=== PATIENT | female | born 1960 | race Caucasian/White ===

== ENCOUNTER → 2016-06-24 | Outpatient (CLI) | payer OTHER ==
--- NOTE | 2016-06-24 17:44 | MA ---
Screening Digital Mammogram With iCAD Analysis Clinical Indications: Routine screening. Her mother was diagnosed with breast cancer in her 70s and a grandmother in her 50s. Technique: Standard cephalocaudal and mediolateral oblique projections were obtained. This examinatio n was processed by the iCAD computer aided detection system. Comparison: June 2015, May 2014, March 2013, March 2012, March 2011, August 2008. Breast density: Type B; Scattered fibroglandular densities. Findings: CAD was reviewed. No masses, suspicious calcifications or other signs of malignancy are id entified. There has been no significant change in the appearance of either breast. Impression: Negative mammogram. BI-RADS 1. Recommendation: Routine mammographic screening in one year. [facility] will send a result letter to the patient. Negative mammography should not preclude additional workup of a clinically suspicious finding. The patient's information is entered into a reminder system with a target due date for her next mammo gram.
== END ==
LOC: FIMAGING 15:21
DX: Z12.31 Encounter for screening mammogram for malignant neoplasm of breast (principal); Z80.3 Family history of malignant neoplasm of breast
CPT/HCPCS: G0202

== ENCOUNTER → 2017-06-12 | Outpatient (CLI) | payer OTHER | LOC: FIMAGING 14:57 | PROVIDERS: ATTEND Internal Medicine Rheumatology | DX: Z13.820 Encounter for screening for osteoporosis (principal); M85.80 Other specified disorders of bone density and structure, unspecified site ==

== ENCOUNTER → 2017-09-07 | Outpatient (CLI) | payer OTHER | LOC: FIMAGING 13:55 | PROVIDERS: ATTEND Obstetrics & Gynecology Gynecology | DX: Z12.31 Encounter for screening mammogram for malignant neoplasm of breast (principal); Z80.3 Family history of malignant neoplasm of breast ==

== ENCOUNTER → 2017-09-15 | Outpatient (CLI) | payer OTHER | LOC: FIMAGING 10:42 | PROVIDERS: ATTEND Obstetrics & Gynecology Gynecology | DX: R92.8 Other abnormal and inconclusive findings on diagnostic imaging of breast (principal) ==

== ENCOUNTER → 2018-04-20 | Outpatient (CLI) | payer OTHER | LOC: FIMAGING 12:50 | PROVIDERS: ATTEND Obstetrics & Gynecology Gynecology | DX: R92.8 Other abnormal and inconclusive findings on diagnostic imaging of breast (principal) ==

== ENCOUNTER 2018-08-01 08:12 | Inpatient (IN) | payer OTHER ==
--- NOTE | 2018-08-01 06:23 | PDHPUP ---
History & Physical Update H&P update statement: This history and physical update is based on an assessment of the patient which was completed after admission or registration (within 24 hours), but prior to the surgery/procedure. H&P update: H&P reviewed & patient examined, no change in patient's condition since H&P completed
[~2018-08-01 08:12] MED LIST: TRANEXAMIC ACID 3,000 MG/50 ML BAG IRR ONE
[2018-08-01] MEDS ORDERED: LIDOCAINE 1% 2 ML INJ ID PRN (08:30)
[2018-08-01] MEDS ORDERED: ACETAMINOPHEN 325 MG TAB PO ONE (08:30)
[2018-08-01] MEDS ORDERED: ceFAZolin 2 GM/DEXTROSE 100 ML IV ONE (08:30)
[2018-08-01] MEDS ORDERED: LR 1,000 ML IV ONE (08:30)
[2018-08-01] MEDS ORDERED: FAMOTIDINE 20 MG TAB PO ONE (08:30)
[2018-08-01] MEDS ORDERED: DEXAMETHASONE 4 MG/ML VIAL IVP ONE (08:30)
[2018-08-01] MEDS ORDERED: PROPOFOL/EMULSION 500 MG/50 ML BOTTLE IV ONE (09:43)
[2018-08-01] MEDS ORDERED: TRANEXAMIC ACID 3,000 MG in NS (SYRINGE) 50 ML IRR ONE (10:00)
[2018-08-01] MEDS ORDERED: ROPIVACAINE 0.2% 80 MG, EPINEPHrine 0.2 MG in SYRINGE 0 ML IU ONE (10:00)
[2018-08-01] MEDS ORDERED: MIDAZOLAM 2 MG/2 ML VIAL ONE ×2 (10:14→10:43)
[2018-08-01] MEDS ORDERED: BUPIVACAINE/DEXTROSE 7.5MG/ML 2 ML SPINAL AMP SP ONE (10:14)
--- NOTE | 2018-08-01 10:43 | PDANEPAE ---
ANE Past Medical History - Cardiovascular History Hx Hypertension: Yes Hx Arrhythmias: No Hx Chest Pain: No Hx Coronary Artery / Peripheral Vascular Disease: No Hx CHF / Valvular Disease: Yes Cardiovascular History Comment: heart murmur - Pulmonary History Hx COPD: No Hx Asthma/Reactive Airway Disease: No Hx Recent Upper Respiratory Infection: No Hx Oxygen in Use at Home: No Hx Sleep Apnea: No Sleep Apnea Screening Result - Last Documented: Negative - Neurologic History Hx Cerebrovascular Accident: No Hx Seizures: No Hx Dementia: No Neurologic History Comment: 20yrs ago odd episode possible tia inconclusive - Endocrine History Hx Diabetes: No - Renal History Hx Renal Disorders: No - Liver History Hx Hepatic Disorders: No - Neurological & Psychiatric Hx Hx Neurological and Psychiatric Disorders: Yes Neurological / Psychiatric History Comment: anxiety/depression. Lupus - Cancer History Hx Cancer: No - Congenital Disorder History Hx Congenital Disorders: No - GI History Hx Gastrointestinal Disorders: Yes Gastrointestinal History Comment: chronic diarrhea - Other Health History Other Health History: bruises easily - Chronic Pain History Chronic Pain: No - Surgical History Prior Surgeries: none in last 5 yrs. gum surgery. 15yrs ago ovarian cyst removed ANE Review of Systems Review of Systems: - Exercise capacity METS (RN): 4 METS ANE Patient History - Allergies Allergies/Adverse Reactions: lamotrigine [From Lamictal] Allergy (Verified 07/19/18 09:01) GI Upset naproxen Allergy (Verified 07/19/18 09:01) Mouth Blisters NSAIDS (Non-Steroidal Anti-Inflamma Allergy (Verified 07/19/18 09:01) Mouth Blisters Penicillins Allergy (Verified 07/19/18 09:01) Hives/Throat Closing Sulfa (Sulfonamide Antibiotics) Allergy (Verified 07/19/18 09:01) Hives/Throat Closing - Home Medications Home Medications: Acyclovir [Zovirax 400 mg (RX)] 400 mg PO DAILY 12/01/12 [Last Taken 08/01/18 06 :30] Hydroxychloroquine Sulfate [Plaquenil 200 mg (RX)] 400 mg PO DAILY 12/01/12 [ Last Taken 08/01/18 06:30] Sertraline HCl [Zoloft 100mg (RX)] 100 mg PO DAILY 12/01/12 [Last Taken 06:30] Zolpidem Tartrate [Ambien 10 mg] 10 mg PO HS 12/01/12 [Last Taken 07/31/18 20:00 ] ARIPiprazole [Abilify 5 mg (*)] 5 mg PO DAILY 07/19/18 [Last Taken 08/01/18 06: 30] Cetirizine [ZyrTEC 10 mg (*)] 10 mg PO BID 07/19/18 [Last Taken 08/01/18 06:30] Cyclobenzaprine [Flexeril 10 MG (*)] 5 mg PO TID PRN 07/19/18 [Last Taken 20:00] Ferrous Gluconate 324 mg PO DAILY 07/19/18 [Last Taken 08/01/18 06:30] LORazepam [Ativan (*)] 1 mg PO DAILY PRN 07/19/18 [Last Taken 07/30/18] Ranitidine HCl [Zantac] 150 mg PO BID 07/19/18 [Last Taken 08/01/18 06:30] amLODIPine BESYLATE [Norvasc 5 mg (*)] 5 mg PO BID 07/19/18 [Last Taken 06:30] Nebivolol HCl [Bystolic] 1.25 mg PO DAILY 07/30/18 [Last Taken 08/01/18 06:30] - NPO status NPO Since - Liquids (Date): 08/01/18 NPO Since - Liquids (Time): 07:00 NPO Since - Solids (Date): 07/31/18 NPO Since - Solids (Time): 19:00 - Smoking Hx Smoking Status: Never smoked - Family Anes Hx Family Hx Anesthesia Complications: none ANE Labs/Vital Signs - Vital Signs Blood Pressure: 135/71 Heart Rate: 69 Respiratory Rate: 16 O2 Sat (%): 95 Height: 162.56 cm Weight: 86.183 kg ANE Physical Exam - Airway Neck exam: decreased ROM Mallampati Score: Class 2 Mouth exam: normal dental/mouth exam - Pulmonary Pulmonary: no respiratory distress, no rales or rhonchi, clear to auscultation - Cardiovascular Cardiovascular: regular rate and rhythym, no murmur, rub, or gallop - ASA Status ASA Status: III ANE Anesthesia Plan Anesthesia Plan: spinal
[2018-08-01] MEDS ORDERED: fentaNYL 100 MCG/2 ML INJ IVP PRN (10:52)
[2018-08-01] MEDS ORDERED: ONDANSETRON 4 MG/2 ML VIAL IVP PRN ×3 (10:52→12:12)
[2018-08-01] MEDS ORDERED: ALBUTEROL 3 ML DEYVIAL IH PRN ×2 (10:52→12:12)
[2018-08-01] MEDS ORDERED: LR 500 ML IV PRN ×2 (10:52→12:12)
[2018-08-01] MEDS ORDERED: NALOXONE HCL 0.4 MG/ML INJ IVP PRN ×2 (10:52→12:12)
[2018-08-01] MEDS ORDERED: DEXAMETHASONE 4 MG/ML VIAL IVP PRN ×2 (10:52→12:12)
[2018-08-01] MEDS ORDERED: LORazepam 1 MG TAB PO PRN (10:57)
[2018-08-01] MEDS ORDERED: ePHEDrine SULFATE 25 MG/5 ML SYR ONE (11:07)
[2018-08-01] MEDS ORDERED: LACTULOSE 20 GM/30 ML UDCUP PO PRN (11:15)
[2018-08-01] MEDS ORDERED: BISACODYL 10 MG SUPP PR PRN (11:15)
[2018-08-01] MEDS ORDERED: PROMETHAZINE HCL 25 MG/ML INJ IVP PRN (11:15)
[2018-08-01] MEDS ORDERED: DIPHENOXYLATE/ATROPINE LOMOTIL 1 TAB PO PRN (11:15)
[2018-08-01] MEDS ORDERED: POLYETHYLENE GLYCOL 3350 17 GM PKT PO PRN (11:15)
[2018-08-01] MEDS ORDERED: CYCLOBENZAPRINE 10 MG TAB PO PRN (11:15)
[2018-08-01] MEDS ORDERED: ONDANSETRON DISINTEGRATING 4 MG TAB PO PRN (11:15)
[2018-08-01] MEDS ORDERED: traMADol 50 MG TAB PO PRN (11:15)
[2018-08-01] MEDS ORDERED: diphenhydrAMINE 25 MG CAP PO PRN (11:15)
[2018-08-01] MEDS ORDERED: MAGNESIUM HYDROXIDE 30 ML UDCUP PO PRN (11:15)
[2018-08-01] MEDS ORDERED: PROMETHAZINE HCL 25 MG SUPPR PR PRN (11:15)
[2018-08-01] MEDS ORDERED: METOCLOPRAMIDE 10 MG/2 ML VIAL IVP PRN (11:15)
[2018-08-01] MEDS ORDERED: TEMAZEPAM 15 MG CAP PO PRN (11:15)
--- NOTE | 2018-08-01 11:38 | PDMN ---
Medical Necessity Medical necessity: Pt meets inpt criteria per MD order and [facility] S-560, Hip Arthrolasty, A-2 days, IP only list. 57 y/o w/L hip OA admitted for L ESTEVAN, ant approach, and post-op care.
--- NOTE | 2018-08-01 11:54 | POSTOPPROG ---
Post Op Note Date of Operation: 08/01/18 Surgeon: Gera Araujo Rn Urgent Care: Bernie Araujo PA-C Anesthesiologist: Lavonne Watson Anesthesia: Spinal Pre-op Diagnosis: left hip OA Post-op Diagnosis: same Indication: left hip pain Procedure: LTHA Findings: severe OA of left hip Inf/Abcess present in the surg proc area at time of surgery?: No EBL: 50-100
[2018-08-01] MEDS: fentaNYL 100 MCG/2 ML INJ IVP PRN ×4 (12:00→13:13)
[2018-08-01] MEDS ORDERED: fentaNYL 100 MCG/2 ML INJ ONE ×2 (12:01→12:28)
--- NOTE | 2018-08-01 12:35 | POSTANESTH ---
Post Anesthetic Evaluation Cardiovascular Status: Normal, Stable, Similar to Pre-Op Cond Respiratory Status: Normal, Stable, Similar to Pre-op Cond. Level of Consciousness/Mental Status: Can Participate in Eval Pain Control: Adequate, Prn Tx Ordered Nausea/Vomiting Control: Adequate, Prn Tx Ordered Complications Possibly Related to Anesthesia: None Noted
[2018-08-01] MEDS: LR 1,000 ML IV SCH (14:46)
[2018-08-01] MEDS: oxyCODONE IR 5 MG TAB PO PRN ×2 (14:50→20:06)
[2018-08-01] MEDS: ceFAZolin 2 GM/DEXTROSE 100 ML IV SCH (17:33)
[2018-08-01] MEDS: ACETAMINOPHEN 325 MG TAB PO SCH ×2 (17:33→23:20)
[2018-08-01] MEDS: ASPIRIN 81 MG CHEWABLE TAB PO SCH (20:07)
[2018-08-01] MEDS: amLODIPine BESYLATE 5 MG TAB PO SCH (20:07)
[2018-08-01] MEDS: FAMOTIDINE 20 MG TAB PO SCH (20:09)
[2018-08-01] MEDS: CETIRIZINE 10 MG TAB PO SCH (20:10)
[2018-08-01] MEDS: SENNOSIDES/DOCUSATE SODIUM TAB PO SCH (20:10)
[2018-08-01] MEDS ORDERED: ZOLPIDEM TARTRATE 5 MG TAB PO SCH (21:00)
[2018-08-02] MEDS: LR 1,000 ML IV SCH (00:40)
[2018-08-02] MEDS: oxyCODONE IR 5 MG TAB PO PRN ×2 (00:40→10:11)
[2018-08-02] MEDS: ceFAZolin 2 GM/DEXTROSE 100 ML IV SCH (02:05)
[2018-08-02] MEDS: ACETAMINOPHEN 325 MG TAB PO SCH ×2 (05:17→11:00)
[2018-08-02] MEDS: FAMOTIDINE 20 MG TAB PO SCH (07:52)
[2018-08-02] MEDS: SENNOSIDES/DOCUSATE SODIUM TAB PO SCH (07:52)
[2018-08-02] MEDS: CETIRIZINE 10 MG TAB PO SCH (07:52)
[2018-08-02] MEDS: ASPIRIN 81 MG CHEWABLE TAB PO SCH (07:52)
[2018-08-02] MEDS: amLODIPine BESYLATE 5 MG TAB PO SCH (08:07)
[2018-08-02] MEDS ORDERED: ARIPiprazole 5 MG TAB PO SCH (09:00)
[2018-08-02] MEDS ORDERED: NEBIVOLOL HCL 5 MG TAB PO SCH (09:00)
[2018-08-02] MEDS ORDERED: SERTRALINE HCL 100 MG TAB PO SCH (09:00)
[2018-08-02] MEDS ORDERED: HYDROXYCHLOROQUINE SULFATE 200 MG TAB PO SCH (09:00)
[2018-08-02] MEDS ORDERED: ACYCLOVIR 400 MG TAB PO SCH (09:00)
[2018-08-02] MEDS ORDERED: FERROUS SULFATE 325 MG TAB PO SCH (09:00)
--- NOTE | 2018-08-02 09:16 | SOAPPROG ---
SOAP Progress Note Assessment/Plan: Assessment: Patient is doing well POD 1 s/p L ESTEVAN Pain management: pain is well controlled on oral pain meds. VTE ppx: recommend aspirin 81 mg BID for 4 weeks, cont SHARA and SCDs Anemia: level is expected initially postop. Asymptomatic. Continue to monitor D/c planning: Patient is having some difficulty with mobility per RN. Discharge to home pending release from PT. Pain is well controlled, HTN well controlled. medically stable and able to discharge to home with support of sister postop then a friend. Plan: 08/02/18 09:14 Subjective: Lizeth is doing well today, denies SOB, chest pain and N/V Objective: Vital Signs Temp Pulse Resp BP Pulse Ox 36.4 C 67 20 123/65 H 954 H 08/02/18 04:30 08/02/18 07:58 08/02/18 07:34 08/02/18 08:07 08/02/18 07:34 Laboratory Results 08/02/18 05:32 08/01/18 08/02/18 08/03/18 05:59 05:59 05:59 Intake Total 3859 Output Total 600 Balance 3259 LLE: incision dressing is clean and dry ,NVI, +pf/df ICD10 Worksheet Patient Problems: Problems Problem Status Onset Primary localized osteoarthritis of left hip Acute Diverticulitis Acute
--- NOTE | 2018-08-02 11:23 | ASMTLACE ---
LACE Length of stay for Answers: 2 days current admission Acuity / Level of Answers: Yes Care: Did the patient have an inpatient admission? Comorbidities - select Answers: Other Notes: HTN all that apply # of Emergency department Answers: 0 visits in the last 6 months Social determinants Answers: Mental health diagnosis (anxiety, depression, pers onality disorders, etc.) Score: 9 Date Signed: 08/02/2018 11:23 AM Electronically Signed By:TIFFANY Juarez
[2018-08-02 13:24] VITALS: BP 106/63
--- NOTE | 2018-08-02 15:19 | GDS ---
[f rep st] DISCHARGE SUMMARY ADMISSION DIAGNOSIS: Left hip osteoarthritis. DISCHARGE DIAGNOSES: Left hip osteoarthritis. PROCEDURE: Left total hip arthroplasty. VTE PROPHYLAXIS: Recommend aspirin 81 mg twice daily for 4 weeks. BRIEF DESCRIPTION OF HOSPITAL STAY: Patient was admitted for an elective joint arthroplasty. The pa monica tolerated the procedure well and has passed physical therapy. The patient was given appropriat e antibiotic prophylaxis and venous thromboembolism prophylaxis. The patient's pain was well control led on oral pain medication, patient was holding down food, and had urinated. Decision was made to d ischarge the patient. The patient was given post-operative prescriptions pre-operatively. PLAN: To follow up with Dr. Araujo's office on August 21 at 8:30 a.m. /[id number]/MODL
--- NOTE | 2018-08-02 20:15 | GOP ---
[f rep st] OPERATIVE REPORT DATE OF OPERATION: 08/01/2018 SURGEON: Christin Araujo MD POUNCER: 1. Sallie Araujo PA-C. 2. Stacie Morrissey PA-C. ANESTHESIA: Spinal. PREOPERATIVE DIAGNOSIS: Left hip osteoarthritis. POSTOPERATIVE DIAGNOSIS: Left hip osteoarthritis. PROCEDURE PERFORMED: Left total hip arthroplasty with x-ray. FINDINGS: ESTIMATED BLOOD LOSS: 200 cc. INDICATIONS: The patient has progressively worsening arthritis of the hip which has failed medical m anagement. The patient understands the treatment options including continued non-operative care and has selected surgical intervention. The patient has decided to undergo total hip arthroplasty via th e direct anterior approach, understanding the risks of the procedure including, but not limited to, n eurovascular injury, infection, persistent pain, component wear and loosening, deep venous thrombosis , pulmonary embolism, limb length inequality, hip instability (including dislocation), and intra-oper ative fractures. DESCRIPTION OF PROCEDURE: After proper identification of the patient including verification and yun ing the surgical site, the patient was brought to the operating room and placed in the supine positio n. All bony prominences were well padded. Anesthesia was induced without complication and intraveno us prophylactic antibiotics were administered prior to skin incision. The operative leg was placed in the Trumpf Arch table extension and the well leg in a Yellofin leg ho lder. The patient was prepped and draped in the usual sterile fashion. The C-arm was draped for int ra-operative fluoroscopy to check acetabular position, femoral component position including leg lengt h and femoral offset. Attention was then drawn to surgical exposure of the hip. An incision was made with a #10 Bard Elisa r blade starting 3 cm lateral and 3 cm distal to the anterior superior iliac spine measuring 8-10 cm and coursing distally toward the greater trochanter. The skin and subcutaneous tissues were divided sharply down to the fascia peyton. The fascia peyton was incised in line with the skin incision exposing the underlying tensor fascia peyton muscle. The muscle was bluntly elevated from the fascia and the f irst extracapsular Cobra retractor was placed laterally at the junction of the superior femoral neck and greater trochanter. The lateral femoral circumflex vessels were identified, cauterized, and divi ded with the Aquamantys bipolar cautery. The deep investing fascia of the TFL was divided to allow p carolee mobilization of the muscle preventing damage during the retraction. The reflected head of the rectus femoris muscle was elevated off the anterior hip capsule and a medial Cobra retractor was plac ed just proximal to the lesser trochanter. The anterior capsulotomy was made sharply from the superolateral acetabulum to the saddle junction of the superior femoral neck and greater trochanter, then coursing inferomedial towards the lesser troc hanter. The retractors were then placed in the intracapsular position for femoral neck osteotomy. C orresponding to pre-operative templating, the osteotomy was made with the oscillating saw carefully p rotecting the greater trochanter and soft tissues. The femoral head was removed from the acetabulum with a corkscrew and confirmed to be severely arthritic with exposed bone, deformity and osteophytes. Similar findings were confirmed in the acetabulum. The Arch table extension was then placed in 40 degrees external rotation. Attention was then drawn to the acetabular preparation. After placement of the anterior and posterio r Cobra retractors outside the labrum and intracapsular, the circumferential labrum was removed sharp ly. The foveal contents were then removed and hemostasis obtained with cautery. The first reamer selected was sized using the removed femoral head. Reaming began with medialization and then commenced in 2 mm increments at 45 degrees of abduction and 15 degrees of anteversion using fluoroscopic navigation. Reaming ceased 1 mm less than the definitive acetabular component and sandra esponded to the pre-operative templating. The final acetabular component was inserted using fluorosc opy to achieve proper orientation yielding excellent purchase and stability in the acetabulum. The f inal acetabular liner was then placed and its seating confirmed. Attention was then turned to the femur. The Arch table extension was placed in extension and adducti on, delivering the osteotomized femoral neck into the wound. A 2-pronged femoral elevator was placed at the calcar and another at the tip of the greater trochanter. The posterolateral capsule was rele ased with cautery allowing mobilization of the femur lateral and anterior for preparation. The exter nal rotators were visualized and preserved. A curette and rongeur were used to open the starting poi nt for broaching. Serial broaching started with the #0 broach and ended with the broach that exhibit ed excellent fit in the proximal femur. A change in pitch during mallet strikes was accompanied by t he inability to advance the broach any further. The trial reduction was performed and fluoroscopic n avigation was utilized to check limb length. Adjustments were made to equalize limb length according ly. After the final trials were accepted they were removed and the wound was copiously lavaged. The femo ral component was seated to the same depth as the final broach and the femoral head was impacted onto the clean trunnion. The hip was then reduced for the final time and once more fluoroscopy was used to check that limb length equality was achieved. The wound was irrigated and closed in layers, the fascia peyton with 2-0 Quill, the subcutaneous tissue with 2-0 Quill, and the skin with Dermabond. Sterile dressings were applied. Final sharps and spon ge counts were accurate. The patient was then transferred to a hospital bed and brought to the [facility] room in stable condition. IMPLANTS: Accolade II, size 4 at 127. Acetabular component is a Trident II 48 mm. Head is a Biolox Delta 32 mm +0. Liner is a Trident X3 thirty-two mm. /[id number]/MODL
== END 2018-08-02 14:18 | disposition home or self-care (01) | DRG 470 ==
LOC: F3N 08:12 → FOB 14:24
PROVIDERS: ADMIT Orthopaedic Surgery; ATTEND Orthopaedic Surgery
PROC: 0SRB04Z Replacement of Left Hip Joint with Ceramic on Polyethylene Synthetic Substitute, Open Approach (ICD-10-PCS; principal; 2018-08-01 10:00)
DX: M16.12 Unilateral primary osteoarthritis, left hip (principal); I10 Essential (primary) hypertension
CPT/HCPCS: 97110-GP; 97116-GP; 97161-GP; 97165-GO; J0171; J0690; J1100; J2250; J2550; J2704; J2765; J2795; J3010

== ENCOUNTER → 2018-09-25 | Outpatient (CLI) | payer OTHER | LOC: FIMAGING 14:51 | PROVIDERS: ATTEND Obstetrics & Gynecology Gynecology | DX: Z12.31 Encounter for screening mammogram for malignant neoplasm of breast (principal) ==